=== PATIENT | female | born 1980 | race Caucasian/White ===

== ENCOUNTER 2018-03-03 15:21 | Outpatient (CLI) | payer OTHER ==
--- NOTE | 2018-03-03 16:28 | History and Physical ---
History & Physical Date of Service March 03, 2018. Complaint Check Pre Mature Rupture Of Membrane History of Present Illness Source: patient The patient is a 37-year-old 1 para 0, EDC of 31 May, 27+ weeks gestational age who presents to labor and delivery from the emergency room for question rupture of membranes. The patient has been receiving her care at [facility]. The patient was in town for graduation. Patient states that she felt a gush of fluid that soaked her underwear. The fluid had no odor. Patient denied any vaginal bleeding. She denies feeling any type of contractions. The patient states that she has had a benign course to date. She states that her laboratory values were within normal limits. She had a normal anatomy ultrasound, and normal cell free DNA screening. 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 Past Surgical History Nose surgery Family History Noncontributory Social History Smoking Status: Never Smoker Review of Systems Constitutional: No fever, No chills, No sweats, No weakness, No fatigue, No problem reported Abdomen: No pain, No nausea, No vomiting, No diarrhea, No constipation, No GI bleeding, No problem reported Genitourinary - Female: No dysuria, No urinary frequency, No urinary urgency, No urinary incontinence, No urinary retention, No hematuria, No dysmenorrhea, No menorrhagia, No metrorrhagia, No rash, No vaginal bleeding, No vaginal discharge, No vaginal itching, No vulvodynia, No , No problem reported Physical Exam General Appearance: no apparent distress Abdomen / GI: + pertinent finding (Gravid, transverse, positive heart tones, no palpable contractions) Genitourinary - Female: + pertinent finding (Sterile speculum examination: No pooling, negative nitrazine, negative fern, negative amnisure) Laboratory Results Amnisure: Negative Test 03/03/18 16:19 Diagnostic Results Bedside ultrasound, grossly normal fluid Assessment and Plan 37-year-old 1 para 0 at 27+ weeks gestational age question rupture membranes membranes -Nitrazine, sterile speculum examination, Fern, and amnisure are all negative - heart rate tracing reactive, no uterine irritability, -Reassured patient, follow-up with primary OB provider for care.
== END 2018-03-03 16:30 | disposition home or self-care (01) ==
LOC: C.OPB 15:21 → MERGE 15:21 → C.LD 16:17 → C.OPB 16:30
PROVIDERS: ATTEND Obstetrics & Gynecology
DX: O09.512 Supervision of elderly primigravida, second trimester (principal); Z3A.27 27 weeks gestation of pregnancy